=== PATIENT | male | born 1965 | race Caucasian/White ===

== ENCOUNTER 2023-04-08 22:56 | Emergency (ER) | payer OTHER ==
[2023-04-08 23:02] VITALS: BP 162/92; PULSE 76; RESP 18; TEMP 98.6; BMI 25.8
[2023-04-09] MEDS ORDERED: ALBUTEROL SO4 2.5/IPRATROPIUM 0.5 INH SOL 3 ML VIAL.NEB. NEB ONE ×2 (00:05→00:07)
[2023-04-09] MEDS ORDERED: guaiFENesin/D-METHORPHAN HB 10 ML UNIT-DOSE CUPS PO ONE (00:06)
[2023-04-09] MEDS ORDERED: guaiFENesin/D-METHORPHAN HB 10 ML UNIT-DOSE CUPS ONE (00:09)
== END 2023-04-09 01:22 | disposition home or self-care (01) ==
LOC: JER 22:56
PROC: 3E0F7GC Introduction of Other Therapeutic Substance into Respiratory Tract, Via Natural or Artificial Opening (ICD-10-PCS; principal; 2023-04-09)
DX: R05.1 Acute cough (principal); R09.81 Nasal congestion; Z20.822 Contact with and (suspected) exposure to COVID-19
CPT/HCPCS: 0241U-QW; 71046-TC-FY; 94640; 99284-25

== ENCOUNTER 2023-09-05 16:11 | Emergency (ER) | payer OTHER ==
[2023-09-05 16:33] VITALS: BP 160/82; PULSE 62; RESP 18; TEMP 98.2; BMI 27.4
== END 2023-09-05 17:26 | disposition home or self-care (01) ==
LOC: JER 16:11
DX: Z48.01 Encounter for change or removal of surgical wound dressing (principal)
CPT/HCPCS: 99281-25

== ENCOUNTER 2024-01-17 10:51 | Emergency (ER) | payer SELFPAY ==
[2024-01-17] MEDS ORDERED: ACETAMINOPHEN INJECTION 100 ML ONE (12:09)
[2024-01-17 12:10] LABS: BASO % 1.1 % (0-2.0); EOS % 2.5 % (0-4.5); HEMATOCRIT 41.5 % (35.4-49); HEMOGLOBIN 13.8 GM/dL (11.7-16.9); LYMPH % 13.4 % (8-40); MCH 27.4 pg (25.7-33.7); MCHC 33.3 g/dl (32.0-35.9); MEAN CELL VOLUME 82.2 fl (80-96); MEAN PLT VOLUME 9.1 fl (7.5-11.1); MONO % 6.5 % (3.8-10.2); NEUT % 76.5 % (42.8-82.8); PLATELET COUNT 188 10^3/uL (134-434); RBC 5.05 M/mm3 (4.00-5.60); RDW 15.3 % (11.9-15.9); WHITE BLOOD COUNT 7.2 K/mm3 (4.0-10.0)
[2024-01-17] MEDS: ACETAMINOPHEN 1000 MG/100 ML BAG IVPB ONE (12:14)
[2024-01-17 12:21] LABS: INR 0.93 (0.83-1.09); PROTHROMBIN TIME (PATIENT) 10.7 SEC (9.7-13.0)
[2024-01-17 12:24] LABS: ACTIVATED PTT 30.5 SECONDS (25.2-36.5)
[2024-01-17 12:28] VITALS: TEMP 97.6; BMI 26.1
[2024-01-17 12:30] LABS: POTASSIUM 4.2 mmol/L (3.5-5.1)
[2024-01-17] MEDS: SODIUM CHLORIDE 0.9% 500 ML INFUS.BAG IV ONE (12:32)
[2024-01-17 12:34] LABS: ALBUMIN 3.3 g/dl (3.4-5.0); BLOOD UREA NITROGEN 20.4 mg/dL (7-18); CALCIUM 8.7 mg/dL (8.5-10.1); MAGNESIUM 2.1 mg/dL (1.8-2.4)
[2024-01-17 12:37] LABS: CREATININE 2.3 mg/dL (0.55-1.3)
[2024-01-17 12:39] LABS: BILIRUBIN,TOTAL 0.3 mg/dL (0.2-1); TOT PROT 6.7 g/dl (6.4-8.2)
[2024-01-17 13:17] VITALS: RESP 15
[2024-01-17 14:25] LABS: HIV INTERPRETATION NEGATIVE (NEGATIVE)
[2024-01-17 16:55] VITALS: BP 136/78; PULSE 61
== END 2024-01-17 17:03 | disposition home or self-care (01) ==
LOC: JER 10:51
PROC: 3E033NZ Introduction of Analgesics, Hypnotics, Sedatives into Peripheral Vein, Percutaneous Approach (ICD-10-PCS; principal; 2024-01-17)
DX: R07.2 Precordial pain (principal)
CPT/HCPCS: 36415; 71045-TC-FY; 71275-TC; 80053; 83735; 84100; 84484; 85025; 85379; 85610; 85730; 86803; 86850; 86900; 86901; 87389; 93005; 93010; 93308; 93971-RT; 99285-25; J0131

== ENCOUNTER 2024-11-14 11:54 | Observation (INO) | payer OTHER ==
[2024-11-14] MEDS: SODIUM CHLORIDE 0.9% 500 ML INFUS.BAG IV ONE (13:45)
[2024-11-14 14:01] LABS: RDW 13.7 % (12.2-16.1)
[2024-11-14 14:03] LABS: ABSOLUTE IMMATURE GRANULOCYTES 0.02 x10^3/uL (0.0-0.031); BASOPHILS # 0.08 x10^3/uL (0.01-0.08); EOSINOPHIL % 3.0 % (0.8-7.0); EOSINOPHILS # 0.27 x10^3/uL (0.04-0.54); MCHC 33.3 g/dl (32.3-36.5); MEAN CELL VOLUME 80.3 fl (79.0-92.2); MEAN PLT VOLUME 12.1 fl (9.4-12.4); MONOCYTE # 0.56 x10^3/uL (0.30-0.82); MONOCYTE % 6.2 % (5.3-12.2)
[2024-11-14 14:05] LABS: EPI CELLS 5 /uL (0-25.1); HYALINE CASTS 0 /uL (0-3.1); URINE APPEARANCE CLEAR; URINE BACTERIA 0 /uL (0-1359); URINE BILIRUBIN NEGATIVE (NEGATIVE); URINE COLOR YELLOW; URINE GLUCOSE (UA) 3+ (NEGATIVE); URINE KETONE NEGATIVE (NEGATIVE); URINE LEUK ESTERASE NEGATIVE (NEGATIVE); URINE NITRITE NEGATIVE (NEGATIVE); URINE PROTEIN 4+ (NEGATIVE); URINE RBC 8 /uL (0-23.9); URINE UROBILINOGEN 0.2 mg/dL (0.2-1.0); URINE WBC 6 /uL (0-25.8)
[2024-11-14 14:10] LABS: INR 0.97 (0.83-1.09); PROTHROMBIN TIME (PATIENT) 10.6 SEC (9.7-13.0)
[2024-11-14 14:13] LABS: ACTIVATED PTT 28.7 SECONDS (25.2-36.5)
[2024-11-14 14:29] LABS: GLUCOSE,RANDOM 115.0 mg/dL (74-106); TOT PROT 6.5 g/dl (6.4-8.2)
[2024-11-14 14:30] LABS: CO2 24.0 mmol/L (21-32)
[2024-11-14 14:31] LABS: ALK PHOS 178.0 U/L (40-150)
[2024-11-14 14:35] LABS: CREATININE 2.46 mg/dL (0.55-1.3); LDL CHOLESTEROL (ONLY SJRH) 123.0 mg/dL (5-100); SGOT/AST 26.0 U/L (5-34); SGPT/ALT 33.0 U/L (0-55)
[2024-11-14 14:55] LABS: HCV DIAGNOSTIC IN-HOUSE W/RFLX NON-REACTIVE (NONREACTIVE)
[2024-11-14 14:56] LABS: HIV INTERPRETATION NEGATIVE (NEGATIVE)
[2024-11-14 21:09] VITALS: BMI 28.0
[2024-11-14] MEDS: INSULIN ASPART SLIDING SCALE (NOVOLOG) 1 VIAL SQ SCH (22:07)
[2024-11-14] MEDS: ATORVASTATIN CA 80 MG TABLET (FP) PO SCH (22:08)
[2024-11-14] MEDS: HEPARIN NA (PORCINE) 5,000 UNITS/ML 1ML VIAL SQ SCH (22:08)
[2024-11-15 06:45] LABS: ABSOLUTE IMMATURE GRANULOCYTES 0.02 x10^3/uL (0.0-0.031); BASOPHILS # 0.08 x10^3/uL (0.01-0.08); EOSINOPHILS # 0.25 x10^3/uL (0.04-0.54); MONOCYTE # 0.47 x10^3/uL (0.30-0.82)
[2024-11-15 06:47] LABS: EOSINOPHIL % 2.9 % (0.8-7.0); IMMATURE PLATELET FRACTION # 20.90 x10^3/uL; MCHC 32.9 g/dl (32.3-36.5); MEAN CELL VOLUME 80.6 fl (79.0-92.2); MONOCYTE % 5.4 % (5.3-12.2); RDW 13.7 % (12.2-16.1)
[2024-11-15 07:19] LABS: GLUCOSE,RANDOM 117.0 mg/dL (74-106); TOT PROT 6.4 g/dl (6.4-8.2)
[2024-11-15 07:20] LABS: CO2 22.0 mmol/L (21-32)
[2024-11-15 07:22] LABS: ALK PHOS 169.0 U/L (40-150)
[2024-11-15 07:25] LABS: CREATININE 2.75 mg/dL (0.55-1.3); SGOT/AST 19.0 U/L (5-34); SGPT/ALT 23.0 U/L (0-55)
[2024-11-15] MEDS: NIFEdipine E.R. 90 MG TABLET PO SCH (10:40)
[2024-11-15] MEDS: CLOPIDOGREL BISULFATE 75 MG TABLET (FP) PO SCH (10:40)
[2024-11-15] MEDS: FAMOTIDINE 20 MG TABLET PO SCH (10:40)
[2024-11-15] MEDS: ATENOLOL 50 MG TABLET (FP) PO SCH (10:41)
[2024-11-15] MEDS: ASPIRIN 81 MG CHEWABLE TABLETS PO SCH (22:54)
[2024-11-16] MEDS: INSULIN ASPART SLIDING SCALE (NOVOLOG) 1 VIAL SQ SCH (05:59)
[2024-11-16 07:01] LABS: ABSOLUTE IMMATURE GRANULOCYTES 0.02 x10^3/uL (0.0-0.031); BASOPHILS # 0.07 x10^3/uL (0.01-0.08); EOSINOPHIL % 3.6 % (0.8-7.0); EOSINOPHILS # 0.29 x10^3/uL (0.04-0.54); MCHC 32.7 g/dl (32.3-36.5); MEAN CELL VOLUME 80.4 fl (79.0-92.2); MEAN PLT VOLUME 12.0 fl (9.4-12.4); MONOCYTE # 0.59 x10^3/uL (0.30-0.82); MONOCYTE % 7.4 % (5.3-12.2); RDW 13.7 % (12.2-16.1)
[2024-11-16 07:08] LABS: GLUCOSE,RANDOM 133.0 mg/dL (74-106)
[2024-11-16 07:09] LABS: TOT PROT 6.4 g/dl (6.4-8.2)
[2024-11-16 07:10] LABS: CO2 23.0 mmol/L (21-32)
[2024-11-16 07:11] LABS: ALK PHOS 163.0 U/L (40-150)
[2024-11-16 07:14] LABS: CREATININE 3.11 mg/dL (0.55-1.3); SGOT/AST 15.0 U/L (5-34); SGPT/ALT 18.0 U/L (0-55)
[2024-11-16 15:09] VITALS: RESP 18
[2024-11-16] MEDS: TAMSULOSIN HCL 0.4 MG CAP PO ONE (19:40)
[2024-11-16] MEDS: ACETAMINOPHEN 1000 MG/100 ML BAG IVPB PRN (22:02)
[2024-11-17 07:01] LABS: MCHC 32.7 g/dl (32.3-36.5); MEAN CELL VOLUME 81.0 fl (79.0-92.2); MEAN PLT VOLUME 12.1 fl (9.4-12.4); RDW 13.7 % (12.2-16.1)
[2024-11-17 07:39] LABS: GLUCOSE,RANDOM 110.0 mg/dL (74-106); TOT PROT 6.2 g/dl (6.4-8.2)
[2024-11-17 07:40] LABS: CO2 21.0 mmol/L (21-32)
[2024-11-17 07:44] LABS: SGOT/AST 16.0 U/L (5-34); SGPT/ALT 17.0 U/L (0-55)
[2024-11-17 07:45] LABS: CREATININE 3.04 mg/dL (0.55-1.3)
[2024-11-17] MEDS: TAMSULOSIN HCL 0.4 MG CAP PO SCH (08:13)
[2024-11-17 08:57] LABS: ALK PHOS 153.0 U/L (40-150)
[2024-11-17 15:26] VITALS: BP 153/84; PULSE 59; TEMP 97.7
== END 2024-11-17 16:20 | disposition home health service (06) ==
LOC: JER 11:54 → JERBED 15:39 → J4W 20:27
PROVIDERS: ADMIT Internal Medicine; ATTEND Internal Medicine
PROC: 3E033NZ Introduction of Analgesics, Hypnotics, Sedatives into Peripheral Vein, Percutaneous Approach (ICD-10-PCS; principal; 2024-11-14)
PROC: 3E013VG Introduction of Insulin into Subcutaneous Tissue, Percutaneous Approach (ICD-10-PCS; 2024-11-14)
PROC: 3E023GC Introduction of Other Therapeutic Substance into Muscle, Percutaneous Approach (ICD-10-PCS; 2024-11-14)
PROC: 3E0337Z Introduction of Electrolytic and Water Balance Substance into Peripheral Vein, Percutaneous Approach (ICD-10-PCS; 2024-11-14)
DX: I63.81 Other cerebral infarction due to occlusion or stenosis of small artery (principal); E11.40 Type 2 diabetes mellitus with diabetic neuropathy, unspecified; R20.2 Paresthesia of skin; N28.9 Disorder of kidney and ureter, unspecified; E78.5 Hyperlipidemia, unspecified; I10 Essential (primary) hypertension; R42 Dizziness and giddiness; R20.0 Anesthesia of skin; R26.81 Unsteadiness on feet; Z89.512 Acquired absence of left leg below knee
CPT/HCPCS: 36415; 70450-TC; 70551-TC; 71045-TC-FY; 76775-TC; 80053; 80061; 81003; 82306; 82550; 82570; 82607; 82962; 83036; 83735; 84100; 84155; 84156; 84165; 84425; 84439; 84443; 84484; 85025; 85027; 85610; 85730; 86803; 86850; 86900; 86901; 87389; 93005; 93010; 93306-TC; 93880-TC; 96372; 96374; 97116-GP; 97162-GP; 99285-25; G0378